=== PATIENT | female | born 1950 | race Caucasian/White ===

== ENCOUNTER → 2018-09-18 | Outpatient (CLI) | payer OTHER ==
[~2018-09-18] VITALS: Ht 152.4 cm; Wt 63.5 kg
[~2018-09-18] MED LIST: CENTRUM SILVER1 EAC4 PO; CHLORTHALIDONE25 MG PO; FISH OIL 1,001000 M2 PO; TURMERIC500 M2 PO
--- NOTE | 2018-09-18 17:56 | P ---
[facility] [place] [address] PROCEDURE REPORT Name: NABORSEAN Room #: REG [facility]#: [id number] Admission: 09/18/18 ������������������ Attend Phys: Jeramy Del Valle MD Discharge: ������������������ Date of : 52 Report #: [id number] THIS REPORT FOR: //name// CC: Jeramy Salazar MD DATE OF SERVICE: 09/18/2018 OUTPATIENT COLONOSCOPY REPORT BRIEF HISTORY: The patient is a 67-year-old woman for average risk screening colonoscopy. Last colonoscopy was 10 years ago. PREOPERATIVE DIAGNOSIS: Average risk screening colonoscopy. POSTOPERATIVE DIAGNOSES: 1. Colon polyps x 3. 2. Moderate sigmoid diverticulosis coli. MEDICATIONS: Deep sedation with propofol per anesthesia. SPECIMENS: 1. Cecal polyps x 2. 2. Hepatic flexure polyp. ESTIMATED BLOOD LOSS: 3 mL. PROCEDURE: Colonoscopy to cecum and terminal ileum with biopsy. FINDINGS: Prior to propofol sedation, procedure of colonoscopy was discussed with the patient as well as potential risks and its complications. She indicates she understands and desires to proceed. DESCRIPTION OF PROCEDURE: With the patient in left lateral decubitus position, digital examination was completed, which revealed no abnormalities. Subsequently, we attempted to pass the standard colonoscope without success through the sigmoid colon. It was tortuous and with sharp angulations. We then switched to a pediatric colonoscope with minimal difficulty, we were able to advance the scope through the sigmoid colon into the proximal colon and ultimately into the cecum. Cecum was identified by the ileocecal valve and the appendiceal orifice. I was able to visualize the distal segment of the terminal ileum, which was inspected and noted to be unremarkable. At that point, the scope was slowly withdrawn and careful circumferential view was obtained. Upon slow withdrawal of the scope, the prep was noted to be excellent. The mucosa was within normal limits, normal vascular pattern, and normal light reflex. As [facility] [address] [place] [address] PROCEDURE REPORT Name: NABORSEAN [facility] #: [facility] [id number] Admission: 09/18/18 ������������������ Attend Phys: Jeramy Del Valle MD Discharge: ������������������ Date of : 52 Report #: [id number] we withdrew the scope, she was found to have 2 diminutive polyps in the cecum, which were removed with biopsy forceps. The scope was further withdrawn and at the hepatic flexure, another diminutive polyp was seen and removed with biopsy forceps. Upon further withdrawal of the scope, no additional neoplastic lesions were seen. As the scope was withdrawn through the sigmoid colon, the patient noted to have moderately severe diverticular disease without endoscopic evidence of diverticulitis. Scope was further withdrawn. No additional abnormalities were seen. Upon retroflexion in the rectum, no abnormalities were seen. Scope was withdrawn. The patient tolerated the procedure well. CONDITION OF THE PATIENT UPON DISCHARGE: Following procedure, the patient drowsy, aroused, conversant and will be discharged to home when fully ambulatory. I have instructed to the patient and family the time of discharge. We will follow up on the path of the polyps. If all 3 are adenomas, she should return in 3 years. If only 1 or 2 adenomas, then 5 years would be indicated. If none are adenomas, then 10 years would be indicated. Previous colonoscopy was 10 years ago. Withdrawal time from the cecum was 12 minutes 37 seconds. ��������������������������������������������� <ELECTRONICALLY SIGNED> ���������������������������������������� By: Jeramy Del Valle MD ��������������������������������������������� 09/18/18 1756 0832 0930 Jeramy Del Valle MD /nt
--- NOTE | 2018-09-20 10:07 | PATH ---
[facility] [place] [address] PATHOLOGY RPT PROCEDURE Name: NABORCYNDEE Schulte Room #: REG EMMA Herrera.#: [id number] ������������������ Admission: 09/18/18 ������������������ Date of : 52 Discharge: Report #: [id number] Path Case #: [id number] [facility] Accession Number: [id number] . 01 Material submitted: . PART A: BX POLYP AT CECUM X2 PART B: BX POLYP AT HEPATIC FLEXURE . 01 Clinical history: . Pre-OP DX: From HX colon cancer Post-OP DX: Colon polyps, diverticulosis . 02 Diagnosis: A. Polyp x2, cecum, endoscopic biopsy: - Both fragments showing tubular adenoma. - Negative for high-grade dysplasia. . B. Polyp at hepatic flexure, endoscopic biopsy: - Minute tubular adenoma. - Negative for high-grade dysplasia. (IUV:nati; 09/19/2018) QMS/09/19/2018 . 02 Electronically signed: . Terri Herrera MD, Pathologist NPI- [id number] . 01 Gross description: . A. Received in formalin labeled "Cyndee Romero, BX polyp at cecum x2," are 2 segments of sheriff soft tissue measuring 0.7 x 0.2 x 0.2 cm in aggregate dimensions and ranging from 0.3 to 0.4 cm in maximum dimension. The specimen is submitted entirely in cassette A1. . B. Received in formalin labeled "Cyndee Romero, BX polyp at hepatic flexure," is a single segment of sheriff soft tissue measuring 0.6 cm in maximum dimension. The specimen is entirely submitted in cassette B1. (TSD; 09/18/2018) TOB/TOB . 02 Pathologist provided ICD-10: D12.0, D12.3 . 02 CPT . 359687, 015336 Specimen Comment: A courtesy copy of this report has been sent to Specimen Comment: [phone], . Specimen Comment: Report sent to / [place] [address] PATHOLOGY RPT PROCEDURE Name: CYNDEE ROMERO Room #: REG [facility] Davidson.Sarita.#: [id number] ������������������ Admission: 09/18/18 ������������������ Date of : 52 Discharge: Report #: [id number] Path Case #: [id number] Specimen Comment: A duplicate report has been generated due to demographic updates. Performed at: [facility] [address], [place], [place] [id number] MD Jeremy Reyes MD Phone: [phone] Performed at: [address] [facility] [id number] MD Terri Herrera MD Phone: [phone]
== END | disposition home or self-care (01) ==
LOC: GI 07:05
DX: Z12.11 Encounter for screening for malignant neoplasm of colon (principal); D12.0 Benign neoplasm of cecum; D12.3 Benign neoplasm of transverse colon; K57.30 Diverticulosis of large intestine without perforation or abscess without bleeding; Z90.49 Acquired absence of other specified parts of digestive tract; Z98.890 Other specified postprocedural states; Z85.118 Personal history of other malignant neoplasm of bronchus and lung; Z91.041 Radiographic dye allergy status; Z88.8 Allergy status to other drugs, medicaments and biological substances; Z79.899 Other long term (current) drug therapy
CPT/HCPCS: 62110; 62900

== ENCOUNTER 2019-08-09 09:26 | Observation (INO) | payer OTHER ==
[2019-08-09] VITALS (7 sets, daily range): BP systolic 95–130; BP diastolic 57–93
[~2019-08-09] VITALS: Ht 152.4 cm; Wt 62.6 kg
[~2019-08-09 09:26] MED LIST changes: +VITAMIN D31250 MC1 PO
--- NOTE | 2019-08-09 16:17 | EKG ---
[facility] [place] [address] ELECTROCARDIOGRAM REPORT Name: SEAN TOMLIN Room #: [address] [place] [address] M.R.#: [id number] Admission: 08/09/19 Attend Phys: Cortez Ramos MD Discharge: Date of : 52 Report #: [id number] THIS REPORT FOR: cc: Marlen Salazar MD, Sharon R. MD Couchonnal, Luis F. 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 : 1950 Requested By: Cortez Ramos Order Number: [id number] MD: Prakash Drake Measurements Intervals [place] Rate: 69 P: 16 NE: 176 QRS: -27 QRSD: 95 T: 24 QT: 382 QTc: 410 Interpretive Statements Sinus rhythm Probable left atrial enlargement Borderline left axis deviation Consider anterior infarct No previous ECG available for comparison Electronically Signed On 08-09-2019 16:16:41 [employer]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
[2019-08-10 00:01] VITALS: BP 97/58
[2019-08-10 02:05] VITALS: BP 101/64
[2019-08-10 03:30] VITALS: BP 101/64
--- NOTE | 2019-08-10 05:14 | NUR ---
PT TO UNIT AROUND 1850. PT IS
--- NOTE | 2019-08-10 05:17 | NUR ---
PT TO UNIT AROUND 1830. PT IS OBSERVATION STATUS. VITAL SIGNS TAKEN FREQUENTLY POST OP. BP ON THE LOWER END, ELECTRICIAN RADIO ON DUTY NOTIFIED. ELECTRICIAN RADIO UP TO SEE PT TONIGHT. LEFT SHOULDER DRESSING DRY AND INTACT. PT REPORTS MINIMAL PAIN, ONLY WITH MOVEMENT. UP TO COMMODE TONIGHT, LITTLE UNSTEADY ON FEET. PT STATES SHE IS ANXIOUS TO GET BACK TO HER EVERYDAY ROUTINE. ORIENTED TO UNIT AND USE OF CALL LIGHT. ASSESSMENT COMPLETED. WILL CONTINUE TO MONITOR.
--- NOTE | 2019-08-10 06:50 | O ---
[address] [address] OPERATIVE REPORT Name: SEAN TOMILN Room #: 447-P [facility] M.R.#: [id number] Admission: 08/09/19 Attend Phys: Cortez Ramos MD Discharge: Date of : 52 Report #: [id number] THIS REPORT FOR: cc: Marlen Salazar MD,Marlen Ramos,Cortez Dupont MD ~ CC: Cortez Salazar DATE OF SERVICE: 08/09/2019 SERVICE: Orthopedics. FACILITY: [facility]. SURGEON: Cortez Ramos M.D. UNIX ANALYST: Tracy Ibrahim NP. INDICATION FOR UNIX ANALYST: Extremity positioning, retraction and assistance with provisional fixation and closure. PREOPERATIVE DIAGNOSIS: Comminuted 4-part left proximal humerus fracture. POSTOPERATIVE DIAGNOSIS: Comminuted 4-part left proximal humerus fracture. PROCEDURES: 1. Open reduction and internal fixation of left 4-part proximal humerus fracture. 2. Left shoulder open biceps tenodesis. COMPLICATIONS: None. DRAINS: None. SPECIMENS: None. ANESTHESIA: General. ESTIMATED BLOOD LOSS: 100 mL. FINDINGS: 1. Synthes anterolateral proximal humeral plate. 2. Biceps tenodesis performed based on the fracture propagation pattern and involvement of bicipital groove. 3. Postoperative plan: Passive range of motion 0-30 degrees, external rotation [address] [address] OPERATIVE REPORT Name: SEAN TOMLIN Room #: 447-P [facility]#: [id number] Admission: 08/09/19 Attend Phys: Cortez Ramos MD Discharge: Date of : 52 Report #: [id number] 0-90 degrees forward flexion with supportive pendulums. Elbow, wrist and hand range of motion early, to begin her formal physical therapy at 3-4 weeks postoperatively. I have already discussed the plan with her physical therapist. HISTORY OF PRESENT ILLNESS: The patient is a 68-year-old female who presented to the orthopedic office after sustaining a left proximal humerus fracture that was severely displaced. She had x-rays which effectively showed a 4-part proximal humerus fracture that was significantly impacted with a blowout of the tuberosities. She was indicated for surgical treatment. The risks, benefits, alternatives, and indication of surgery discussed with her in detail. We had a lengthy conversation and answered all of her questions in regard to treatment options and postoperative outcomes. We discussed the injury in the context of her process as well as within the context of the fracture pattern itself which was quite severe. She expressed understanding and gave full informed consent. Risks, benefits, alternatives and indications were included in this discussion. Risks include but not limited to pain, bleeding, infection, injury to nerves or blood vessels, malunion, nonunion, avascular necrosis, need for further surgery including hardware removal as well as revision arthroplasty and complications related to anesthesia including stroke, heart attack, pulmonary complications, thromboembolic disease and . Despite these risks, she wished to proceed. PROCEDURE IN DETAIL: After left upper extremity was correctly identified in the holding area as the operative extremity, the patient was taken to the operating room where general anesthesia was induced without complication. She was seated in beach chair position. She was very carefully positioned and padded appropriately. She had significant kyphosis and we took this into consideration in sitting her safely. Left upper extremity was prepped and draped in standard sterile fashion. Prophylactic antibiotics with clindamycin were administered due to her history of allergies to cephalosporin. Left upper extremity was then prepped and draped in standard sterile fashion. Time-out procedure was performed. Standard anterior approach was made to the shoulder with a deltopectoral interval developed and fracture was then visualized. Hematoma was evacuated and irrigated. Fracture was carefully evaluated. She had essentially an impaled shaft on to the head and tuberosities with the head having valgus impaction, causing a tuberosity blowout. The tuberosity bone was rather thin and did require FiberWire sutures in the rotator cuff for reinforcement of the repair and ultimately used these for the initial and provisional fixation. A #2 FiberWire was placed in the subscapularis, the supraspinatus and infraspinatus. I used multiple planes of x-ray throughout the procedure to identify the extent of the fracture pattern as well as the reduction and the provisional and final fixation. During the exposure, the bicipital groove was visualized and unroofed, exposing the biceps tendon. Lesser tuberosity fracture was unstable [address] [address] OPERATIVE REPORT Name: SEAN TOMLIN Franca Room #: 447-P [facility] Roman M.RJuanita#: [id number] Admission: 08/09/19 Attend Phys: Cortez Ramos MD Discharge: Date of : 52 Report #: [id number] and the fracture reduction required the heavy nonabsorbable sutures in the subscapularis. These sutures once they were ultimately placed through the plate to allow reduction of the lesser tuberosity and subscapularis insertion in the appropriate position placed significant strain across the biceps tendon. The fracture pattern had a bone itself in a thrusting position. Ultimately, this would be treated with a biceps tenodesis. The plate was then provisionally fixed to the shaft and after I was happy with the appearance of the plate on the shaft, it was ultimately compressed against the bone with a nonlocking screw. Once the plate was compressed and stabilized, that screw was eventually changed to an appropriately sized lag screw that reduced distance after the plate had been compressed down to the bone. I placed six suture limbs from the rotator cuff with sutures through and then visually manipulated them while assessing the fracture reduction. The soft tissue envelope was essentially intact around the proximal humerus and I did not want to take this down and risk stripping the bone off the soft tissues, which would have risked for loss of reduction, difficult fixation as well as loss of blood supply to the individual fracture fragments. Therefore, primarily indirect reduction techniques were utilized for the proximal portion of the fracture. She did require a fair amount of longitudinal traction, which helped to correct position of the valgus impacted humeral head fragment and this allowed the tuberosity segments to be compressed down in a circumferential fashion providing better support to the humeral head. There was no real cancellous cavity, so I did not place any bone graft. She did have an anterior medial calcar fragment that was displaced and shortened and I did during the reduction hold it manually reduced and then I was able to capture with a nonlocking screw in the kickstand position, but ultimately this fragment was not large enough for a second screw through the plate and was not stable with just a single screw as it had a coronal split to it as well. It was located on the medial side of the neck underneath the latissimus dorsi. I could visualize this and actually saw the circumflex vessels and could palpate the axillary nerve as well and to reduce this fracture or excise this fracture fragment would have required a dramatic amount of soft tissue stripping. Based on the x-ray and the intraoperative assessment found that this fragment does not impinge upon the inferior glenoid or the humeral head and is extraarticular fragment to strip the soft tissues here and in fact the calcar would put the humeral head at risk of avascular necrosis and so a malunion of this single fragment I felt was more unremarkable scenario and so ultimately the third shaft screw was fixed with simple bicortical fixation without capturing that fragment. This was a locking screw. After the provisional fixation was achieved with the plate placed over the tuberosities and that the tuberosities reduced via suture passage through the plate, they were each tied down over the plate providing good positioning. Again, throughout the procedure, multiple planes of x-ray were used and then I placed the proximal locking screws in the standard fashion with specific care taken to avoid excessively long screws and then on multiple occasions did the approach withdrawal technique with the live fluoroscopy to ensure that the screws were appropriately fixed and not penetrating the articular [address] [address] OPERATIVE REPORT Name: SEAN TOMLIN Room #: 447-P [facility] M.R.#: [id number] Admission: 08/09/19 Attend Phys: Cortez Ramos MD Discharge: Date of : 52 Report #: [id number]. Everything moved as one unit after the fixation then. I was happy with the overall alignment with the primary thought being to restore the length and the shaft head relationship while reducing the tuberosity. It does have shortening from a medial and lateral standpoint, but I do not think that her cuff function will be affected because the soft tissues are in continuity and its relatively slight effect on the motor tendon unit length in relationship. After final x-rays were taken, the wounds were copiously irrigated and I again carefully evaluated the biceps tendon. It was under significant strain and was impinged by the FiberWire and the reduced tuberosity, and so I transected the biceps tendon and tenodesed it superiorly so that it did not move within the bicipital groove and will remain stationary on the proximal side and sewed this into the transverse ligament as well as lateral aspect of the subscapularis tendon insertion. On the distal portion, I then allowed it to retract distally approximately 5 mm to decrease tension on the tendon/biceps muscle and then a #2 Tevdek suture was used to perform a tenodesis to the upper border of the pectoralis tendon, which had been partially released during the exposure to allow access for the plate along the shaft after the tenodesis was performed to the pectoralis. The upper border pectoralis release was primarily repaired with the tenodesis. Finally, we irrigated once more and then closed the deltopectoral interval over 1 gram of vancomycin powder. The fat layer was closed with 2-0 Vicryl suture. Skin was closed with 2-0 Vicryl followed by running subcuticular 3-0 Monocryl and Dermabond. A sterile dressing was applied and the patient was put back in her sling. <ELECTRONICALLY SIGNED> By: Cortez Ramos MD 08/10/19 0650 2300 0028 Cortez Ramos MD /nt
[2019-08-10 07:27] VITALS: BP 101/58
[2019-08-10 10:22] LABS: HEMOGLOBIN 11.1 gm/dL (12.0-15.0); MCH 31.2 pg (26.0-34.0); MCHC 32.8 g/dL (28.0-37.0); MCV 95.1 fL (80.0-100.0); RBC 3.57 mil/uL (4.20-5.00); WBC 10.1 thou/uL (4.0-11.0)
[2019-08-10 10:33] LABS: CALCIUM 8.5 mg/dL (8.5-10.1); CREATININE 0.5 mg/dL (0.6-1.0)
--- NOTE | 2019-08-10 10:48 | NUR ---
PT ADMITTED RELATED TO LT ORIF HUMERUS. CM REVIEWED CHART AND SPOKE WITH CARE TEAM. CM MET WITH PT AT BEDSIDE THIS DAY. PT IS A&O X4. CM ROLE INTRODUCED. PT INDICATED SHE LIVES IN A HOUSE WITH HER SPOUSE WITH 3 STEPS TO ENTER AND NO STEPS INSIDE. PT STATES SHE HAS ALL NEEDS ON 1 LEVEL. 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 PT ANTICIPATES RETURNING HOME ONCE MEDICALLY STABLE. ORTHO INDICATED NURSING 2X/WEEK FOR 2 WEEKS UPON DC. REFERRAL TO BE SENT TO [facility] FOR REVIEW FOR POSSIBLE ADMISSION. ANTICPATE PT WILL DC HOME TODAY. CM TO FOLLOW INDICATED WITH DC PLANNING.
[2019-08-10 14:13] VITALS: BP 101/58
--- NOTE | 2019-08-10 14:19 | NUR ---
FAXED REFERRAL TO [facility] SPOKE WITH CELIO IN ADM SHE CAN ACCEPT AND SEE PT WITH NURSING 2X/WK FOR 2 WKS. FAXED DC ORDERS/SUMMARY AND RECEIVED CONFIRMATION THEY WILL NOTIFY PT TIME OF VISITS.
[2019-08-10 14:22] VITALS: BP 101/58
--- NOTE | 2019-08-10 16:39 | NUR ---
PT CARE ASSUMED AT 0700. A&Ox4. IV PATENT WITH NO REDNESS OR EDEMA. FALL PROTOCOL IN PLACE. POTASSIUM LOW AT 3.0. ONE TIME POTASSIUM GIVEN AND TWO BAGS OG POTASSIUM INFUSSED RAIN. PT IS VERY SENSITIVE TO PAIN BUT WHEN ASKED WHAT HER NUMBER IS SHE STATES A 2. FALL PROTOCOL IN PLACE. CALL LIGHT IN REACH.
== END 2019-08-10 19:00 | disposition home or self-care (01) ==
LOC: TBA 09:26 → OR 09:26 → 4S 19:56
PROVIDERS: Internal Medicine; ADMIT Orthopaedic Surgery Sports Medicine
DX: S42.202A Unspecified fracture of upper end of left humerus, initial encounter for closed fracture (principal); M81.0 Age-related osteoporosis without current pathological fracture; R82.994 Hypercalciuria; C34.90 Malignant neoplasm of unspecified part of unspecified bronchus or lung; W19.XXXA Unspecified fall, initial encounter; Y93.89 Activity, other specified; Y92.89 Other specified places as the place of occurrence of the external cause; Y99.8 Other external cause status
CPT/HCPCS: 50010; 50101; 50172; 50386; 50417; 50733; 52256; 54118; 55430; 56527; 56528; 56530; 62110; 62900; 70005